=== PATIENT | female | born 1960 | race African-American/Black ===

== ENCOUNTER 2018-03-27 16:07 | Emergency (ER) | payer BC ==
[~2018-03-27] VITALS: Ht 175.3 cm; Wt 99.8 kg
[2018-03-27] MEDS ORDERED: cloNIDine HCL 0.1 MG TABLET PO ONE (16:30)
[2018-03-27] MEDS ORDERED: ACETAMINOPHEN 500 MG TABLET PO ONE (16:30)
--- NOTE | 2018-03-27 16:36 | PHYS DOC ---
Adult General Chief Complaint Chief Complaint: MECHANICAL FALL HPI HPI Patient is a 57 year old female who presents with severe headache and neck pain following a fall on the ice just prior to arrival. The patient denies loss of consciousness but states that she did have some dizziness just after the fall. She denies use of blood thinners. She denies changes in gait, changes in vision or paresthesias. Review of Systems Review of Systems Constitutional: Denies fever or chills [] Eyes: Denies change in visual acuity, redness, or eye pain [] HENT: Denies nasal congestion or sore throat [] Respiratory: Denies cough or shortness of breath [] Cardiovascular: No additional information not addressed in HPI [] GI: Denies abdominal pain, nausea, vomiting, bloody stools or diarrhea [] : Denies dysuria or hematuria [] Musculoskeletal: See history of present illness Integument: Denies rash or skin lesions [] Neurologic: See history of present illness Endocrine: Denies polyuria or polydipsia [] All other systems were reviewed and found to be within normal limits, except as documented in this note. Current Medications Current Medications Current Medications Medications (Trade) Dose Ordered Sig/Lucrecia Start Time Stop Time Status Last Admin Dose Admin Acetaminophen (Tylenol) 1,000 mg 1X ONCE 03/27/18 16:30 03/27/18 16:38 DC 03/27/18 16:45 1,000 MG Clonidine HCl (Catapres) 0.1 mg 1X ONCE 03/27/18 16:30 03/27/18 16:38 DC 03/27/18 16:45 0.1 MG Allergies Allergies Allergies Coded Allergies Type Severity Reaction Last Updated Verified codeine Allergy Unknown 03/27/18 Yes metronidazole Allergy Unknown 03/27/18 Yes Physical Exam Physical Exam Constitutional: Well developed, well nourished, no acute distress, non-toxic appearance. [] HENT: Normocephalic, atraumatic, bilateral external ears normal, oropharynx moist, no oral exudates, nose normal. [] Eyes: PERRLA, EOMI, conjunctiva normal, no discharge. [] Neck: Normal range of motion, no tenderness, supple, no stridor. [] Cardiovascular:Heart rate regular rhythm, no murmur [] Lungs & Thorax: Bilateral breath sounds clear to auscultation [] Abdomen: Bowel sounds normal, soft, no tenderness, no masses, no pulsatile masses. [] Skin: Warm, dry, no erythema, no rash. [] Back: No tenderness, no CVA tenderness. [] Extremities: No tenderness, no cyanosis, no clubbing, ROM intact, no edema. [] Neurologic: Alert and oriented X 3, normal motor function, normal sensory function, no focal deficits noted, cranial nerves II through XII are grossly intact. [] Psychologic: Affect normal, judgement normal, mood normal. [] Current Patient Data Vital Signs Vital Signs Date Time Temp Pulse Resp B/P (MAP) Pulse Ox O2 Delivery O2 Flow Rate FiO2 03/27/18 16:45 61 224/108 03/27/18 16:15 98.3 19 99 Room Air 98.3 EKG EKG [] Radiology/Procedures Radiology/Procedures []PATIENT: TRIPP HARRIS CACCOUNT: [id number]#: [id number] : 1960 LOCATION: ER AGE: 57 SEX: F EXAM STATUS: REG ER ORD. PHYSICIAN: VITA LLOYD APRN REASON: fell back onto ice, neckpain and headache PROCEDURE: CT HEAD AND CERVICAL SPINE WO RS Compliance Statement: One or more of the following individualized dose reduction techniques were utilized for this examination: 1. Automated exposure control 2. Adjustment of the mA and/or kV according to patient size 3. Use of iterative reconstruction technique CT HEAD AND CERVICAL SPINE WITHOUT CONTRAST History: pt fell, hitting back of head and neck Comparison: None. Procedure: Axial images are obtained of the head from the skull base through the vertex without IV contrast. Noncontrast helical CT of the cervical spine was performed. Axial, sagittal, and coronal reconstructions were obtained. Findings: The ventricles and sulci are normal for the patient's age. There is mild periventricular white matter hypoattenuation. This is a nonspecific finding but is commonly due to chronic small vessel ischemic disease in a patient of this age. No mass-effect, midline shift, hemorrhage or obvious acute infarction is identified. Basilar cisterns are patent. Bone windows demonstrate no significant calvarial abnormality. The visualized paranasal sinuses are clear. Mastoid air cells are well aerated. There is no evidence of acute fracture or acute malalignment of the cervical spine. There is minimal degenerative endplate spurring. This addendum again Disc space narrowing. The facet joints are mildly hypertrophic. The vertebral body height and alignment are maintained. Craniovertebral junction is normal. There are bilateral cervical ribs. Mildly enlarged right level 2 lymph node. The visualized lung apices are clear. IMPRESSION: 1. No acute intracranial abnormality. 2. No acute fracture of the cervical spine. Electronically signed by: Quinten Swift MD (03/27/2018 5:01 PM) [id number] DICTATED and SIGNED BY: QUINTEN SWIFT MD DATE: 03/27/18 1654 Course & Med Decision Making Course & Med Decision Making Pertinent Labs and Imaging studies reviewed. (See chart for details) []The patient was given tylenol for pain and clonidine for her HTN in the ED. The patient states that she has not taken her home medications today. Dragon Disclaimer Dragon Disclaimer This electronic medical record was generated, in whole or in part, using a voice recognition dictation system. Departure Departure Impression: Primary Impression: Fall Additional Impression: Headache Disposition: 01 HOME, SELF-CARE Condition: STABLE Referrals: MURPHY CHATMAN (PCP) Patient Instructions: Fall Prevention and Home Safety, General Headache Without Cause Additional Instructions: Take the pain mediation as directed. Do not drive or operate heavy machinery while taking this medication. Your images were clear for head injury or cervical spine injury. You may take ibuprofen or Tylenol as needed for pain. Follow-up with your primary care provider if not improving in 3 days or return to the emergency department if worsening. Scripts Tramadol Hcl (TRAMADOL HCL) 50 Mg Tablet 50 MG PO DAILY PRN for PAIN, #10 TAB 0 Refills Prov: VITA LLOYD APRN 03/27/18 Problem Qualifiers VITA LLOYD APRN Mar 27, 2018 16:36
--- NOTE | 2018-03-27 17:04 | RAD ---
PQRS Compliance Statement: One or more of the following individualized dose reduction techniques were utilized for this examination: 1. Automated exposure control 2. Adjustment of the mA and/or kV according to patient size 3. Use of iterative reconstruction technique CT HEAD AND CERVICAL SPINE WITHOUT CONTRAST History: pt fell, hitting back of head and neck Comparison: None. Procedure: Axial images are obtained of the head from the skull base through the vertex without IV contrast. Noncontrast helical CT of the cervical spine was performed. Axial, sagittal, and coronal reconstructions were obtained. Findings: The ventricles and sulci are normal for the patient's age. There is mild periventricular white matter hypoattenuation. This is a nonspecific finding but is commonly due to chronic small vessel ischemic disease in a patient of this age. No mass-effect, midline shift, hemorrhage or obvious acute infarction is identified. Basilar cisterns are patent. Bone windows demonstrate no significant calvarial abnormality. The visualized paranasal sinuses are clear. Mastoid air cells are well aerated. There is no evidence of acute fracture or acute malalignment of the cervical spine. There is minimal degenerative endplate spurring. This addendum again Disc space narrowing. The facet joints are mildly hypertrophic. The vertebral body height and alignment are maintained. Craniovertebral junction is normal. There are bilateral cervical ribs. Mildly enlarged right level 2 lymph node. The visualized lung apices are clear. IMPRESSION: 1. No acute intracranial abnormality. 2. No acute fracture of the cervical spine. Electronically signed by: Quinten Swift MD (03/27/2018 5:01 PM) [id number]
[2018-03-27] MEDS ORDERED: TRAM50TA PO (17:22)
[2018-03-27 17:30] VITALS: BP 226/96
== END 2018-03-27 17:31 | disposition home or self-care (01) ==
LOC: ER 16:07
DX: R51 Headache (principal); M54.2 Cervicalgia; R42 Dizziness and giddiness; Z88.5 Allergy status to narcotic agent; Z88.8 Allergy status to other drugs, medicaments and biological substances; W00.0XXA Fall on same level due to ice and snow, initial encounter; Y93.89 Activity, other specified; Y92.89 Other specified places as the place of occurrence of the external cause; Y99.8 Other external cause status
CPT/HCPCS: 70450; 72125; 99284